=== PATIENT | female | born 1970 | race Caucasian/White ===

== ENCOUNTER 2017-05-21 05:28 | Outpatient (CLI) | payer MEDICAID ==
[~2017-05-21] VITALS: Ht 153.7 cm; Wt 84.4 kg
[2017-05-21] MEDS ORDERED: FLUT1DIS26 IH (10:18)
[2017-05-21] MEDS ORDERED: MORP15TA PO (10:18)
[2017-05-21] MEDS ORDERED: RT-ALBUINH IH (10:18)
[2017-05-21] MEDS ORDERED: CITA20TA12 PO (10:18)
[2017-05-21] MEDS ORDERED: FLUT9.9S NS (10:18)
[2017-05-21] MEDS ORDERED: ALBU18HF2 IH (10:18)
[2017-05-21] MEDS ORDERED: NF-ACI30T PO (10:18)
[2017-05-21] MEDS ORDERED: HYDR-3820 PO (10:18)
== END 2017-05-21 13:02 ==
LOC: PREOP 05:28 → EDUNIT# 08:30 → PREOP 13:02
PROVIDERS: ATTEND Otolaryngology Otolaryngology/Facial Plastic Surgery
DX: Z01.818 Encounter for other preprocedural examination; J38.3 Other diseases of vocal cords

== ENCOUNTER 2017-05-28 07:42 | Day surgery (SDC) | payer MEDICAID ==
[~2017-05-28] VITALS: Ht 153.7 cm; Wt 84.4 kg
[~2017-05-28 07:42] MED LIST: ALBU18HF2 IH; CITA20TA12 PO; FLUT1DIS26 IH; FLUT9.9S NS; HYDR-3820 PO; MORP15TA PO; NF-ACI30T PO; RT-ALBUINH IH
[2017-05-28] MEDS ORDERED: LIDOCAINE/EPI 1%-1:200,000 (XYLOCAINE) 10 ML VIAL ONE (07:50)
[2017-05-28] MEDS: LACTATED RINGERS 1,000 ML IV PRN ×2 (08:00→10:44)
[2017-05-28] MEDS ORDERED: MIDAZOLAM 2 MG/2 ML (VERSED) VIAL ONE (08:15)
[2017-05-28] MEDS ORDERED: FAMOTIDINE 20MG/2ML IV (PEPCID) IV ONE (08:15)
[2017-05-28] MEDS ORDERED: KETAMINE HCL 100 MG/ML 5 ML VIAL ONE (08:15)
[2017-05-28] MEDS ORDERED: fentaNYL INJECTION 100 MCG/2 ML AMP ONE ×2 (08:15→08:36)
[2017-05-28 08:31] LABS: ANION GAP 11 MMOL/L (5-14); BLOOD UREA NITROGEN 18 MG/DL (7-18); BUN/CREATININE RATIO 24; CALCIUM 8.8 MG/DL (8.5-10.1); CARBON DIOXIDE 26 MMOL/L (21-32); CHLORIDE 104 MMOL/L (98-107); CREATININE SERUM 0.74 MG/DL (0.60-1.30); GFR ESTIMATED > 60; GLUCOSE 119 MG/DL (70-105); POTASSIUM 4.1 MMOL/L (3.6-5.0); SODIUM 141 MMOL/L (135-145)
[2017-05-28] MEDS ORDERED: LACTATED RINGERS 1,000 ML IV PRN (08:52)
[2017-05-28] MEDS ORDERED: fentaNYL INJECTION 100 MCG/2 ML AMP IV ONE (09:00)
--- NOTE | 2017-05-28 09:13 | Progress Note-Pre Operative ---
Pre-Operative Progress Note H&P Reviewed The H&P was reviewed, patient examined and no changes noted. Date Seen by Provider: May 28, 2017 Time Seen by Provider: 09:00 Date H&P Reviewed: May 28, 2017 Time H&P Reviewed: 09:00 Pre-Operative Diagnosis: Bilat Vocal Cord Polyps-obstructive ARIELLE TEJADA MD May 28, 2017 9:13 am
[2017-05-28] MEDS ORDERED: ONDANSETRON 4 MG/2 ML (SDV) Z0FRAN ONE (09:22)
[2017-05-28] MEDS ORDERED: SEVOFLURANE (ULTANE) 15 ML INHAL SOLN ONE ×3 (09:22)
[2017-05-28] MEDS ORDERED: proPOfol 200 MG/20 ML (DIPRIVAN) VIAL IV ONE (09:22)
[2017-05-28] MEDS ORDERED: DEXAMETHASONE 10 MG/ML (DECADRON) 1 ML VIAL ONE (09:22)
[2017-05-28] MEDS ORDERED: LIDOCAINE PF 2% 5 ML (XYLOCAINE) VIAL ONE (09:22)
[2017-05-28] MEDS ORDERED: LIDOCAINE 4% INJ (XYLOCAINE) 5ML AMP INH ONE (09:30)
[2017-05-28 09:32] VITALS: BP 162/99
[2017-05-28] MEDS ORDERED: ROCURONIUM 50 MG/5 ML (ZEMURON) VIAL IV ONE (09:46)
[2017-05-28] MEDS ORDERED: SUGAMMADEX 100 MG/ML 5 ML (BRIDION) IV ONE (09:47)
--- NOTE | 2017-05-28 10:06 | Progress Note-Post Operative ---
Post-Operative Progess Note Surgeon (s)/Agronomy Specialist (s) Surgeon ARIELLE TEJADA MD Agronomy Specialist n/a Pre-Operative Diagnosis Bilat Vocal Cord Polyps-obstructive Post-Operative Diagnosis same Post-Op Procedure Note Date of Procedure: May 28, 2017 Name of Procedure Performed: Direct Laryngoscopy with Removal of Right Vocal Cord Mass Description & Findings Description and Findings: n/a Anesthesia Type get Estimated Blood Loss minimal Packing none. Specimen(s) collected/removed 9x7mm right vocal cord polyp/mass ARIELLE TEJADA MD May 28, 2017 10:06 am
[2017-05-28] MEDS ORDERED: HYDROcodone/APAP 5 MG/325 MG (LORTAB) TAB PO PRN (10:15)
[2017-05-28] MEDS ORDERED: PROMETHAZINE INJ 25 MG/ML (PHENERGAN) AMP IV PRN (10:15)
[2017-05-28] MEDS ORDERED: ACETAMINOPHEN 325 MG TABLET/CAPLET (TYLENOL) PO PRN (10:15)
[2017-05-28] MEDS: fentaNYL INJECTION 100 MCG/2 ML AMP IVP PRN ×3 (10:32→10:46)
[2017-05-28] MEDS ORDERED: LACTATED RINGERS 1,000 ML IV ONE (10:35)
[2017-05-28] MEDS ORDERED: morphine INJ 10 MG/ML 1ML (SYR OR VIAL) ONE (11:06)
[2017-05-28 11:30] VITALS: BP 178/99
[2017-05-28] MEDS ORDERED: morphine INJ 10 MG/ML 1ML (SYR OR VIAL) IVP PRN (11:30)
[2017-05-28] MEDS ORDERED: HYDR-3812 PO (11:41)
[2017-05-28 12:00] VITALS: BP 184/78
[2017-05-28 12:30] VITALS: BP 164/78
[2017-05-28] MEDS ORDERED: LACTATED RINGERS 2,000 ML IV ONE (13:44)
== END 2017-05-28 12:40 | disposition home or self-care (01) ==
LOC: SDC 07:42
PROVIDERS: ATTEND Otolaryngology Otolaryngology/Facial Plastic Surgery
DX: J38.3 Other diseases of vocal cords (principal); J44.9 Chronic obstructive pulmonary disease, unspecified; F17.210 Nicotine dependence, cigarettes, uncomplicated; K21.9 Gastro-esophageal reflux disease without esophagitis; E66.9 Obesity, unspecified; Z68.35 Body mass index [BMI] 35.0-35.9, adult; Z79.899 Other long term (current) drug therapy
CPT/HCPCS: 36415; 80048; 87081; 93005; 94640